=== PATIENT | female | born 1980 | race Caucasian/White ===

== ENCOUNTER 2019-10-08 14:54 | Outpatient (CLI) | payer OTHER, SELFPAY ==
--- NOTE | 2019-10-08 15:00 | MM_ITS ---
WS: [id number] BILATERAL DIGITAL SCREENING MAMMOGRAPHY WITH CAD CLINICAL INFORMATION: SCREENING HISTORY: Screening mammogram. No current complaints. COMPARISON: None. TECHNIQUE: Bilateral CC and MLO views. FINDINGS: The breasts are composed of heterogeneous fibroglandular density tissue, which can limit the detectio n of small underlying mass lesions. No suspicious mass, asymmetry, calcifications, or architectural d istortion. No evidence of malignancy. MM/[place] [id number] IMPRESSION: BI-RADS: 1-Negative FOLLOW UP: 1 Year Follow-up Recommend return to annual screening mammography.
== END 2019-10-08 14:55 | disposition home or self-care (01) ==
LOC: RADSHAW 14:59
PROVIDERS: PCP Family Medicine; Visit Provider Family Medicine
DX: Z12.31 Encounter for screening mammogram for malignant neoplasm of breast (principal)
CPT/HCPCS: 77067

== ENCOUNTER → 2020-11-30 16:00 | Outpatient (BNVA) | payer OTHER, SELFPAY | PROVIDERS: PCP Family Medicine; Visit Provider Obstetrics & Gynecology | DX: Z12.4 Encounter for screening for malignant neoplasm of cervix (principal) | CPT/HCPCS: 87624 ==

== ENCOUNTER → 2020-12-08 08:18 | Outpatient (BNVA) | payer OTHER, SELFPAY | PROVIDERS: PCP Family Medicine; Visit Provider Obstetrics & Gynecology | DX: N93.9 Abnormal uterine and vaginal bleeding, unspecified (principal) | CPT/HCPCS: 80061; 83036; 84443; 85025 ==

== ENCOUNTER 2021-04-03 14:43 | Outpatient (CLI) | payer OTHER, SELFPAY ==
--- NOTE | 2021-04-03 14:00 | MM_ITS ---
WS: [id number] BILATERAL DIGITAL SCREENING MAMMOGRAPHY WITH CAD CLINICAL INFORMATION: Z12.39 - Encounter for other screening for malignant neop... HISTORY: Screening mammogram. No current complaints. COMPARISON: October 08, 2019 TECHNIQUE: Bilateral CC and MLO views. FINDINGS: The breasts are composed of heterogeneous fibroglandular density tissue, which can limit the detectio n of small underlying mass lesions. No suspicious mass, asymmetry, calcifications, or architectural d istortion. No evidence of malignancy. MM/[place] [id number] IMPRESSION: BI-RADS: 1-Negative FOLLOW UP: 1 Year Follow-up Recommend return to annual screening mammography.
== END 2021-04-03 14:44 | disposition home or self-care (01) ==
LOC: RADSHAW 14:48
PROVIDERS: PCP Family Medicine; Visit Provider Obstetrics & Gynecology
DX: Z12.31 Encounter for screening mammogram for malignant neoplasm of breast (principal)
CPT/HCPCS: 77067

== ENCOUNTER → 2022-05-14 14:39 | Outpatient (BNVA) | payer OTHER, SELFPAY | PROVIDERS: PCP Family Medicine; Visit Provider Obstetrics & Gynecology | DX: Z01.419 Encounter for gynecological examination (general) (routine) without abnormal findings (principal) | CPT/HCPCS: 84443 ==

== ENCOUNTER → 2022-05-23 07:52 | Outpatient (BNVA) | payer OTHER, SELFPAY | PROVIDERS: PCP Family Medicine; Visit Provider Obstetrics & Gynecology | DX: N93.9 Abnormal uterine and vaginal bleeding, unspecified (principal) | CPT/HCPCS: 76830 ==

== ENCOUNTER 2022-06-05 11:03 | Outpatient (CLI) | payer OTHER, SELFPAY ==
--- NOTE | 2022-06-05 11:15 | MM_ITS ---
WS: [id number] BILATERAL 3D TOMOSYNTHESIS DIGITAL SCREENING MAMMOGRAPHY WITH CAD CLINICAL INFORMATION: SCREENING HISTORY: Screening mammogram. Bilateral breast soreness COMPARISON: April 03, 2021 TECHNIQUE: Bilateral CC and MLO views. FINDINGS: The breasts are composed of heterogeneous fibroglandular density tissue, which can limit the detectio n of small underlying mass lesions. No suspicious mass, asymmetry, calcifications, or architectural d istortion. No evidence of malignancy. MM/[place] [id number] IMPRESSION: BI-RADS: 1-Negative FOLLOW UP: 1 Year Follow-up Recommend return to annual screening mammography.
== END 2022-06-05 11:04 | disposition home or self-care (01) ==
LOC: RAD 11:04
PROVIDERS: PCP Family Medicine; Visit Provider Family Medicine
DX: Z12.31 Encounter for screening mammogram for malignant neoplasm of breast (principal)
CPT/HCPCS: 77063; 77067

== ENCOUNTER 2023-02-27 12:17 | Outpatient (CLI) | payer OTHER, SELFPAY ==
[2023-02-27 13:13] VITALS: BMI 29.2
--- NOTE | 2023-02-27 13:19 | ECG_ITS ---
[facility] Test Date: 2023-02-27 Pat Name: Fernanda Moore Department: Room: Gender: Female Assignment Editor: : 1980 Requested By: Sushil Quiroz Order Number: [id number] Otero MD: Daniel Plaza M.D. Interpretive Statements NAME OF STUDY: TREADMILL STRESS TEST INDICATION: [Chest Pain] EXERCISE DATA: The patient was exercised by [place] protocol. Baseline heart rate was 85 beats per minute. Baseline blood pressure was 152/106 millimeters of mercury. Target heart rate was 150 beats per minute. Maximum heart rate achieved was 176 which was 117% of the target heart rate. Maximum blood pressure was 186/90 millimeters of mercury. Total exercise time was 10 minutes and 3 seconds. Maximum METs achieved was 13.5. The reason for ending the test was maximal effort achieved. The patient complained of shortness of breath during the stress test, which then resolved at the end of the test. ELECTROCARDIOGRAM: BASELINE: Showed sinus rhythm, normal axis, no significant ST-T changes at the baseline noted. [] EXERCISE: At the peak exercise level, [] No significant ST-T changes suggestive of ischemia noted. [] RECOVERY: During the recovery period, heart rate dropped appropriately. No significant ST-T changes in the recovery suggestive of ischemia noted. [] CONCLUSION: 1. Exercise capacity is excellent 2. Heart rate response was appropriate 3. Blood pressure response was appropriate. 4. Symptoms not suggestive of ischemia. 5. Stress test is negative for ischemia. Electronically Signed On 03-17-2023 20:25:49 REMOTE SENSING TECHNOLOGIST by Daniel Plaza M.D. [id number]
[2023-02-27 14:01] VITALS: BP 143/86; PULSE 85
== END 2023-02-27 12:18 | disposition home or self-care (01) ==
PROVIDERS: PCP Family Medicine; Visit Provider Family Medicine
DX: R07.9 Chest pain, unspecified (principal)
CPT/HCPCS: 93017

== ENCOUNTER 2023-03-11 14:43 | Outpatient (CLI) | payer OTHER, SELFPAY ==
--- NOTE | 2023-03-11 14:53 | CT_ITS ---
WS: [id number] CT ABDOMEN PELVIS TECHNIQUE: Contrast-enhanced CT of the abdomen and pelvis with coronal and sagittal reformatted image s. CLINICAL INFORMATION: Right lower quadrent pain COMPARISON: None. DLP: 484.[address] scans at [facility] use at least one of these dose optimization techniques: automated e xposure control; mA and/or kV adjustment per patient size (includes targeted exams where dose is matc hed to clinical indication); or iterative reconstruction. FINDINGS: Mild diffuse fatty infiltration of the liver. Normal spleen. Normal GE junction. Lung bases are well aerated. Gallbladder is contracted. Normal pancreatic parenchymal enhancement. Normal portal vein and splenic vein. Adrenal glands are normal. No hydronephrosis in either kidney. Normal caliber abdomina l aorta. Tiny fat-containing umbilical hernia. Normal appendix in the RIGHT lower quadrant. No eviden ce of acute appendicitis. Few sigmoid diverticuli. No evidence of acute diverticulitis. Small peripheral enhancing LEFT corpus luteum cyst measuring 17 mm. No free fluid in the cul-de-sac. Slight retrolisthesis L5 on S1. IMPRESSION: 1. Normal appendix in the RIGHT lower quadrant. No evidence of acute appendicitis. 2. Normal renal parenchymal enhancement. No hydronephrosis. 3. Small peripherally enhancing LEFT corpus luteum cyst measuring 17 mm. No free fluid in the cul-de -sac. 4. Tiny fat-containing umbilical hernia. 5. No other suspicious findings.
[2023-03-11] MEDS: iohexol 350 mg/mL 500 mL Btl (per mL) PO (15:53)
[2023-03-11] MEDS: iohexol 350 mg/mL 500 mL Btl (per mL) IV (15:55)
== END 2023-03-11 14:44 | disposition home or self-care (01) ==
LOC: RAD 14:47
PROVIDERS: PCP Family Medicine; Visit Provider Family Medicine
DX: R10.31 Right lower quadrant pain (principal)
CPT/HCPCS: 74177; Q9967

== ENCOUNTER 2023-10-02 10:57 | Outpatient (CLI) | payer OTHER, SELFPAY ==
--- NOTE | 2023-10-02 11:02 | MM_ITS ---
WS: [id number] BILATERAL SCREENING DIGITAL TOMOSYNTHESIS MAMMOGRAM WITH CAD HISTORY: SCREENING COMPARISON: 06/05/2022, 04/03/2021, 10/08/2019 Bilateral CC and MLO views with tomosynthesis and synthetic mammography submitted. Computer aided det ection analyzed. Breast composition: The breasts are heterogeneously dense, which may obscure small masses. No suspici ous masses, microcalcifications or architectural distortion. MM/[place] [id number] IMPRESSION: BI-RADS: 1-Negative FOLLOW UP: 1 Year Follow-up
== END 2023-10-02 10:58 | disposition home or self-care (01) ==
PROVIDERS: PCP Family Medicine; Visit Provider Family Medicine
DX: Z12.31 Encounter for screening mammogram for malignant neoplasm of breast (principal)
CPT/HCPCS: 77063; 77067

== ENCOUNTER 2023-10-23 06:58 | Day surgery (SDC) | payer OTHER, SELFPAY ==
[2023-10-23 07:18] VITALS: BP 124/76; PULSE 93; RESP 18; TEMP 36.4; O2SAT 97; BMI 29.2
[2023-10-23 07:23] LABS: OR HCG Qualitative Urine Negative (Negative)
[2023-10-23] MEDS: sodium chloride 0.9% 1,000 ML 30 ML IV (07:24)
--- NOTE | 2023-10-23 07:53 | ANES.PREANE2 ---
Pre-Anesthetic Assessment Height/Weight: Height 1.63 m Weight 77.111 kg Temp Pulse Resp BP Pulse Ox O2 Del Method 97.6 F 93 18 124/76 97 Room Air 10/23/23 07:18 10/23/23 07:18 10/23/23 07:18 10/23/23 07:18 10/23/23 07:18 10/23/23 07:18 Preop Diagnosis: GERD, screening Operation Date: 10/23/23 08:00 Proposed Procedures p EGD 08106, 24242, G0121, K21.9, Z12.11(Not Applicable) - Duran Avery DO s Colonoscopy(Not Applicable) - Duran Avery DO Familial anesthetic complications: None Was Beta Cony taken within 24 hours: N/A Was Clonidine taken within 24 hours: N/A Last intake: Intake Last Liquid Date 10/22/23 Last Liquid Time 20:00 Last Solid Date 10/21/23 Last Solid Time 17:00 Social No alcohol and No tobacco Exam alert, oriented x 3 and clear to auscultation bilaterally Airway Mallampati: Class II Dentition: full (permanent lower retainer) History/ROS No significant history except as noted Pulmonary Asthma (seasonal ) CV/HEM None reported None reported Hepatic None reported GI Gastroesophageal Reflux Disease Metabolic None reported Musc/skel None reported Neuropsych None reported Anesthetic Plan ASA status: 1 Anesthesia: Anesthesia Evaluation and MAC Risk of > 500 ml blood loss (7ml/kg in children): No Medications/Allergies Home Medications Medication Instructions Recorded Confirmed Last Taken Type lisdexamfetamine 40 mg capsule 40 mg PO DAILY 11/30/20 10/21/23 10/22/23 History (Vyvanse) fluticasone propionate 50 1 spray intranasal BID #16 grams 11/02/22 10/21/23 10/22/23 Rx mcg/actuation nasal spray,suspension (Flonase Allergy Relief) levonorgestrel-ethinyl estradiol 1 tab PO DAILY #84 tabs 06/13/23 10/21/23 10/22/23 Rx 0.1 mg-20 mcg tablet (Aviane) Allergies Allergy/AdvReac Type Severity Reaction Status Date / Time No Known Allergies Allergy Verified 07/01/23 08:38 Current Medications Generic Name Dose Route Start Last Admin Trade Name Freq PRN Reason Stop Dose Admin Sodium Chloride 1,000 mls @ 30 mls/hr 10/23/23 07:00 10/23/23 07:24 Sodium Chloride 0.9% IV 10/24/23 06:59 30 mls/hr .Q24H REGINE Administration PFSH Anesthesia Medical History No pertinent past medical history Denies diabetes, asthma, hypertension, seizures, DVT/PE PCP: Dr. Lane Surgical History S/P section x 2 2008 2009 S/P tubal ligation Performed at time of tubal ligation in 2009 S/P wisdom tooth extraction Family History Mother Diabetes maternal Thyroid disease after radiation for lymphoma Grandfather Diabetes maternal Heart disease maternal and paternal Grandmother Diabetes Family/Other Breast cancer maternal great grandmother, diagnosed in her 80s Denies family history of Colon cancer Ovarian cancer Hyperlipidemia Hypertension Uterine cancer Stroke Social History Smoking and tobacco/nicotine status: never used tobacco/nicotine Data Anesthesia Cardiac Studies: Cardiac Event Monitor 04/15/23
--- NOTE | 2023-10-23 08:24 | PM.HP ---
Providers/Chief Complaint Primary Care Provider: Sushil Lane MD Chief Complaint: K21.9, Z12.11 History of Present Illness Fernanda Moore is a 43 year old female Review of Systems General: Reports: 10 or more systems reviewed and unremarkable except in HPI and below Medications/Allergies Home Medications Medication Instructions Recorded Confirmed Last Taken Type lisdexamfetamine 40 mg capsule 40 mg PO DAILY 11/30/20 10/21/23 10/22/23 History (Vyvanse) fluticasone propionate 50 1 spray intranasal BID #16 grams 11/02/22 10/21/23 10/22/23 Rx mcg/actuation nasal spray,suspension (Flonase Allergy Relief) levonorgestrel-ethinyl estradiol 1 tab PO DAILY #84 tabs 06/13/23 10/21/23 10/22/23 Rx 0.1 mg-20 mcg tablet (Aviane) Allergies Allergy/AdvReac Type Severity Reaction Status Date / Time No Known Allergies Allergy Verified 07/01/23 08:38 PFSH Acute PFSH: Medical History No pertinent past medical history Denies diabetes, asthma, hypertension, seizures, DVT/PE PCP: Dr. Lane Surgical History S/P section x 2 2008 2009 S/P tubal ligation Performed at time of tubal ligation in 2009 S/P wisdom tooth extraction Family History Mother Diabetes maternal Thyroid disease after radiation for lymphoma Grandfather Diabetes maternal Heart disease maternal and paternal Grandmother Diabetes Family/Other Breast cancer maternal great grandmother, diagnosed in her 80s Denies family history of Colon cancer Ovarian cancer Hyperlipidemia Hypertension Uterine cancer Stroke Social History Smoking and tobacco/nicotine status: never used tobacco/nicotine Vitals/I&O/Wt Last Vital Signs Temp 97.6 F 10/23/23 07:18 Pulse 93 10/23/23 07:18 Resp 18 10/23/23 07:18 BP 124/76 10/23/23 07:18 Pulse Ox 97 10/23/23 07:18 O2 Del Method Room Air 10/23/23 07:18 Weight last 48 hrs Weight 170 lb A&P Assessment and plan (1) GERD (gastroesophageal reflux disease): (2) Colon cancer screening: Plan EGD and colonoscopy Attestations Medical Necessity Statement*: Home Coding Level of Care Code Acute Code for Chg Fwd Diagnoses GERD (gastroesophageal reflux disease) K21.9 Colon cancer screening Z12.11
[2023-10-23 08:47] VITALS: BP 121/50; PULSE 89; RESP 16; TEMP 36.3; O2SAT 97
[2023-10-23 09:03] VITALS: BP 121/83; PULSE 90; RESP 18; TEMP 36.1; O2SAT 98
[2023-10-23] MEDS: ondansetron 2 mg/ML SDV 2 mL 4 MG IVP (09:08)
--- NOTE | 2023-10-23 09:50 | ANE.PACU2 ---
Inpatient post-anesthesia follow up: Airway intact: Yes Vital signs: Temperature 97.0 F Pulse Rate 90 Respiratory Rate 18 Blood Pressure 121/83 Pulse Oximetry 98 Oxygen Delivery Me thod Room Air Oxygen Flow Rate Fraction of Inspir ed Oxygen Hydration adequate: Yes Nausea and vomiting: No Pain level: 1 Mental status: Baseline
== END 2023-10-23 09:50 | disposition home or self-care (01) ==
PROVIDERS: Anesthesiology; PCP Family Medicine; Visit Provider Surgery
PROC: 0DJ08ZZ Inspection of Upper Intestinal Tract, Via Natural or Artificial Opening Endoscopic (ICD-10-PCS; CPT 43235; principal; 2023-10-23 08:00)
PROC: 0DJD8ZZ Inspection of Lower Intestinal Tract, Via Natural or Artificial Opening Endoscopic (ICD-10-PCS; CPT 45378; 2023-10-23 08:00)
DX: Z12.11 Encounter for screening for malignant neoplasm of colon (principal); K21.9 Gastro-esophageal reflux disease without esophagitis; K64.8 Other hemorrhoids; J45.909 Unspecified asthma, uncomplicated
CPT/HCPCS: 43239; 45378; 81025; 88305; J2405; J2704; J7030

== ENCOUNTER 2025-01-26 08:41 | Outpatient (CLI) | payer OTHER, SELFPAY ==
--- NOTE | 2025-01-26 09:00 | MM_ITS ---
WS: [id number] BILATERAL 3D TOMOSYNTHESIS DIGITAL SCREENING MAMMOGRAPHY WITH CAD CLINICAL INFORMATION: Z12.39 - Encounter for other screening for malignant neop... HISTORY: Screening mammogram. No current complaints. COMPARISON: 2023 TECHNIQUE: Bilateral CC and MLO views. FINDINGS: Scattered fibroglandular densities bilaterally. No suspicious focal mass, asymmetry, calcifications, or architectural distortion. No evidence of malignancy. MM/MM scr BI tomosynthesis [id number] IMPRESSION: DENSITY: There are scattered areas of fibroglandular density. BI-RADS: 1 - Negative. FOLLOW UP: 1 Year Follow-up Recommend return to annual screening mammography.
== END 2025-01-26 08:42 | disposition home or self-care (01) ==
LOC: RAD 08:43
PROVIDERS: PCP Family Medicine; Visit Provider Family Medicine
DX: Z12.31 Encounter for screening mammogram for malignant neoplasm of breast (principal); R92.323 Mammographic fibroglandular density, bilateral breasts; R92.1 Mammographic calcification found on diagnostic imaging of breast
CPT/HCPCS: 77063; 77067

== ENCOUNTER 2025-02-01 09:03 | Outpatient (RCR) | payer OTHER, SELFPAY | END 2025-02-24 23:59 | disposition home or self-care (01) | LOC: SPT 09:03 | PROVIDERS: PCP Family Medicine; Visit Provider Family Medicine | DX: R42 Dizziness and giddiness (principal) | CPT/HCPCS: 95992; 97161 ==